=== PATIENT | female | born 1935 | race Caucasian/White ===

== ENCOUNTER → 2018-09-11 09:33 | Outpatient (CLI) | payer MEDICARE, BC | END | disposition home or self-care (01) | LOC: D.HCCARDIO 09:33 | DX: I25.10 Atherosclerotic heart disease of native coronary artery without angina pectoris (principal); R42 Dizziness and giddiness ==

== ENCOUNTER → 2019-03-14 09:09 | Outpatient (CLI) | payer MEDICARE, BC | END | disposition home or self-care (01) | LOC: D.HCCARDIO 09:09 | PROVIDERS: ATTEND Internal Medicine Cardiovascular Disease | DX: R06.02 Shortness of breath (principal); I25.10 Atherosclerotic heart disease of native coronary artery without angina pectoris ==

== ENCOUNTER 2019-11-14 11:39 | Inpatient (IN) | payer MEDICARE, BC ==
[2019-11-14] VITALS (12 sets, daily range): BP systolic 99–161; BP diastolic 48–85; Ht 157.5 cm; Wt 56.8 kg
[~2019-11-14] VITALS: Ht 157.5 cm; Wt 56.8 kg
--- NOTE | ~2019-11-14 | HEMODYNAMI ---
PATIENT:ROSENDA SILVA MEDICAL RECORD: [id number] : 35 LOCATION:[facility]# [id number] ADMISSION DATE: 11/14/19 Generatedon:11/14/201913:21 Patient name: ROSENDA SILVA Patient #: [id number] SSN: [id number] : 1935 Date of study: 11/14/2019 Page: Of Hemodynamic Procedure Report Patient Data Patient Demographics Procedure consent was obtained First Name: ROSENDA Gender: Female Last Name: RICARDO : 1935 Patient #: [id number] Age: 84 year(s) Race: SSN: [id number] Additional ID: [id number] Contact details [address]: [address] [place] [address] [address] State: [place] City: [place] Zip code: [address] Past Medical History Allergies: No known allergies Admission Admission Data Admission Date: 11/14/2019 Admission Time: 11:39 Arrival Date: 11/14/2019 Arrival Time: 0:00 Admit Source: Emergency Insurance Payor: Medicare department [facility] #: [id number] Height (in.): 62 BSA: 1.58 (m2) Height (cm.): 157.48 BMI: 23.41 (kg/m2) Weight (lbs.): 128 Weight (kg.): 58.06 Lab Results Lab Result Date: 11/14/2019 Lab Result Time: 0:00 CBC Name Units Result Min Max Hematocrit % 42.5 --(*---)-- 42 54 Hemoglobin g/dl 13.6 --(*---)-- 13.5 17.5 Procedure Procedure Types Cath Procedure Diagnostic Procedure [facility] w/Coronaries Sedation Charges Moderate Sedation up to 45 minutes PCI Procedure Coronary Stent Coronary Stent Initial Hemochron ACT Test Procedure Description Procedure Date Procedure Date: 11/14/2019 Procedure Start Time: 12:30 Procedure End Time: 13:13 Procedure Staff Name Function John Berger MD Performing Physician Emily Foy RN Nurse Kelly Garcia RT Process Operator Lis Hodges RT Monitor Sharonda Zuleima RT Scrub Procedure Data Cath Procedure Fluoroscopy Diagnostic fluoroscopy Total fluoroscopy Time: 8.8 time: 8.8 min min Diagnostic fluoroscopy Total fluoroscopy dose: 790 dose: 790 mGy mGy Contrast Material Contrast Material Type Amount (ml) Isovue 370 137 Entry Location Entry Primary Successful Side Size Upsize Upsize Entry Closure [place] ccessful Closure Location (Fr) 1 (Fr) 2 (Fr) Remarks Device Remarks Femoral Right 6 Fr Exoseal artery Short Femoral Right 6 Fr Manual vein Short Compression Estimated blood loss: 10 ml Diagnostic catheters Device Type Used For End Catheter Placement MULTIPACK JL 4.0 5Fr Procedure catheter MULTIPACK 3DRC 5Fr Procedure catheter MULTIPACK Pigtail 5 Fr Procedure catheter Procedure Complications No complications Procedure Medications Medication Administration Route Dosage 0.9% NaCl I.V. 100 ml/hr Oxygen etCO2 Nasal cannula 2 l/min Lidocaine 2% added to field 20 Heparin Flush Bag added to field 2 bags (1000units/500ml NS) Benadryl I.V. 50 mg Versed I.V. 2 mg Fentanyl I.V. 50 mcg Fentanyl I.V. 50 mcg Heparin Bolus I.V. 6000 units Nitroglycerin IC/IA I.C. 50 mcg Versed I.V. 1 mg Plavix P.O. 600 mg Hemodynamics Rest BSA: 1.58 (m2) HGB: 13.6 (g/dl) O2 Consumption: Estimated: 141.46 (ml/min) O2 Co nsumption indexed: Estimated:89.53 (ml/min/m) Heart Rate: 71 (bpm) Pressure Samples Time Site Value (mmHg) Purpose Heart Use Rate(bpm) 13:05 LV 74/6,13 Snapshot 56 13:06 AO 99/44(69) Pullback 68 13:06 LV 99/3,14 Pullback 68 Gradients Valve Time Site 1 Site 2 Mean SEP/DFP Peak To Heart Use (mmHg) (sec/min) Peak Rate (mmHg) (bpm) Aortic 13:06 LV AO 7 16 0 68 99/3,14 99/44(69) Calculations Valve P-P Mean Valve Index Valve Source Name Gradient Area Flow (cm2) Aortic 0 7 0 7 Snapshots Pre Cath Intra NCS Post Cath Vital Signs Time Heart Resp SPO2 etCO2 NIBP (mmHg) Rhythm Pain Sedation Rate (ipm) (%) (mmHg) Status Level (bpm) 12:24:02 90 13 100 31.4 163/89(122) NSR w/ ST 0 (11) 10(A) Elevation , No pain 12:28:20 90 13 99 35.2 148/84(119) NSR w/ ST 0 (11) 10(A) Elevation , No pain 12:32:36 86 10 97 29.9 135/75(109) NSR w/ ST 0 (11) 10(A) Elevation , No pain 12:36:52 86 10 99 33.7 135/70(102) NSR w/ ST 0 (11) 9(A) Elevation , No pain 12:41:10 86 10 100 32.2 136/71(107) NSR w/ ST 0 (11) 9(A) Elevation , No pain 12:45:28 80 11 100 8.9 135/67(91) NSR w/ ST 0 (11) 9(A) Elevation , No pain 12:49:44 90 13 100 29.2 112/63(104) NSR 0 (11) 9(A) , No pain 12:53:58 74 13 100 30.7 93/53(88) NSR 0 (11) 9(A) , No pain 12:58:06 70 13 100 29.9 96/58(88) NSR 0 (11) 9(A) , No pain 13:02:20 62 13 100 19.4 74/46(63) NSR 0 (11) 10(A) , No pain 13:06:24 67 12 100 14.2 90/50(75) NSR 0 (11) 10(A) , No pain 13:10:29 67 13 100 24.7 106/60(91) NSR 0 (11) 10(A) , No pain 13:14:41 100 18.7 112/60(90) NSR 0 (11) 10(A) , No pain 13:18:55 100 29.2 108/59(84) NSR 0 (11) 10(A) , No pain Medications Time Medication Route Dose Verified Delivered Reason Notes Effectiveness by by 12:25:38 Versed I.V. 2 mg John Emily for sedation Ab Foy RN 12:25:42 0.9% NaCl I.V. 100 John Emily used for ml/hr Ab Foy protective signal operations supervisor 12:25:48 Oxygen etCO2 2 John Emily used for Nasal l/min Ab Foy procedure cannula RN 12:25:49 Fentanyl I.V. 50 John Emily for sedation mcg Ab Foy RN 12:25:53 Lidocaine 2% added 20ml John John for local to vial Ab Berger MD anesthetic field 12:25:57 Heparin Flush added 2 John John used for Bag to bags Ab Berger MD procedure (1000units/500ml field NS) 12:26:06 Benadryl I.V. 50 mg John Emily used for Ab Foy protective signal operations supervisor 12:30:50 Versed I.V. 1 mg John John for sedation Ab Berger MD 12:30:58 Fentanyl I.V. 50 John Emily for sedation mcg Ab Foy RN 12:43:15 Heparin Bolus I.V. 6000 John Emily for verif ied units Ab Foy anticoagulation with Dr. LORENA Berger 13:00:04 Nitroglycerin I.C. 50 John John for IC/IA mcg Ab Berger MD vasodilation 13:11:41 Plavix P.O. 600 John John for mg Ab Berger MD antiplatelet therapy Procedure Log Time Note 12:08:14 Informed consent obtained and on chart 12:08:46 Procedure Status Emergent Heart Cath (AMI). 12:08:47 Time tracking: Regular hours (M-F 7:00 - 5:00) 12:08:52 Plan of Care:Hemodynamics will remain stable., Cardiac rhythm will remain stable., Comfort level will be maintained., Respiratory function will remain adequate., Patient/ family verbilizes understanding of procedure., Procedure tolerated without complication., Recovers from procedure without complications.. 12:08:54 Emily Foy RN sent for patient. Start room use. 12:08:56 H&P Date Dictated: 11/14/2019 ER History on chart.. 12:10:10 Family unavailable. 12:12:23 Stress Test: no; N/A ? 12:12:42 Admit Source: Emergency department 12:14:33 Arrival Date: 11/14/2019 12:00:00 AM 12:14:46 Patient Height : 62 inches 12:14:54 Patient Weight : 128 lbs 12:15:15 Insurance Payor : Medicare 12:16:55 Patient received from ED to CCL 1 Alert and oriented. Tansferred to table in Supine position. 12:16:57 Warm blankets applied, and ester hugger turned on for patient comfort. 12:16:57 Correct patient and procedure confirmed by team. 12:16:59 ECG and BP/O2 sat monitors applied to patient. 12:17:03 Pre-procedure instructions explained to patient. 12:17:03 Pre-op teaching completed and patient verbalized understanding. 12:17:08 Patient NPO since Breakfast. 12:17:23 Patient allergic to No known allergies 12:19:56 Is the patient allergic to Iodine/contrast media? No. 12:19:57 Was the patient premedicated? N/A 12:19:59 Is patient on blood thinner?No 12:20:04 Patient diabetic? No. 12:20:07 If diabetic: On Metformin? N/A 12:20:12 Patient not . Patient is over age 55. 12:20:15 ----Pre-sedation anethsthesia assessment.---- 12:20:18 Previous problem with sedation/anesthesia? No ? 12:20:19 Snore? Yes 12:20:20 Sleep apnea? Yes 12:20:21 Deviated septum? No 12:20:22 Opens mouth fully? Yes 12:20:23 Sticks out tongue? Yes 12:20:25 Airway obstruction? No ? 12:20:27 Dentures? No ? 12:20:30 Pre procedure: right dorsailis pedis pulse 1+ Palpable, but thready & weak; easily obliterated 12:20:34 Patient pain scale 0/10 ?. 12:20:38 IV patent on arrival in right hand with 0.9% NaCl at [facility]. 12:20:48 Lab results pending. 12:20:53 Right groin area was prepped with chlora-prep and draped in sterile fashion 12:20:53 Alarms reviewed by R. N. 12:20:54 Sharps counted by scrub and verified by R.N. 12:20:57 Use device set Femoral Dx 12:20:58 ACIST Syringe (72079) opened to sterile field. 12:20:59 Bag Decanter (2002S) opened to sterile field. 12:21:00 Medline Cath Pack ([id number]) opened to sterile field. 12:21:01 ACIST Hand Control (17023) opened to sterile field. 12:21:01 ACIST Manifold (83241) opened to sterile field. 12:21:02 DIAGNOSTIC Multipack 5Fr catheter set (SP9121) opened to sterile field. 12:21:03 SHEATH 5FR [place] (JHY742) opened to sterile field. 12:21:04 EMERALD Guide Wire (502-678) opened to sterile field. 12::50 Full Disclosure recording started 12::53 Vital chart was started 12:23:14 Baseline sample Acquired. 12::06 Rhythm: sinus rhythm , w/ ST elevation 12::44 --------ALL STOP TIME OUT------ 12::45 Final Timeout: patient, procedure, and site verified with staff and physician. All members of the team are in agreement. 12:24:46 Right groin site verified by team. 12::50 Fire Safety Assessment: A--An alcohol-based skin anteseptic being used preoperatively., C--Open oxygen or nitrous oxide is being used., D--An ESU, laser, or fiber-optic light is being used. 12::53 Physical assessment completed. ASA score P 2 - A patient with mild systemic disease as per John Berger MD. ::59 Sedation plan: IV Moderate Sedation Medication:Versed, Fentanyl 12:25:38 Versed 2 mg I.V. was administered by Emily Foy RN; for sedation; Verbal order read back and verified. 12:25:42 0.9% NaCl 100 ml/hr I.V. was administered by Emily Foy RN; used for procedure; Verbal order read back and verified. 12:25:48 Oxygen 2 l/min etCO2 Nasal cannula was administered by Emily Foy RN; used for procedure; Verbal order read back and verified. 12:25:49 Fentanyl 50 mcg I.V. was administered by Emily Foy RN; for sedation; Verbal order read back and verified. 12::53 Lidocaine 2% 20ml vial added to field was administered by John Berger MD; for local anesthetic; Verbal order read back and verified. 12:25:57 Heparin Flush Bag (1000units/500ml NS) 2 bags added to field was administered by John Berger MD; used for procedure; Verbal order read back and verified. 12:26:06 Benadryl 50 mg I.V. was administered by Emily Foy RN; used for procedure; Verbal order read back and verified. :: Lab Result : Hemoglobin 13.6 g/dl 12:: Lab Result : Hematocrit 42.5 % 12:30:00 Procedure started. 12:30:11 IV Extension Set opened to sterile field. 12:30:50 Versed 1 mg I.V. was administered by John Berger MD; for sedation; Verbal order read back and verified. 12:30:56 Local anesthetic to right femoral artery with Lidocaine 2% by Jhon Berger MD.INITIAL ACCESS ONLY 12:30:58 Fentanyl 50 mcg I.V. was administered by Emily Foy RN; for sedation; Verbal order read back and verified. 12:32:24 A 6 Fr Short sheath was inserted into the Right Femoral artery 12:32:46 A MULTIPACK JL 4.0 5Fr catheter was advanced over the wire and used for Procedure. 12:33:58 LCA angiography performed. 12:34:01 Injector settings: Ml/sec: 3, Volume: 6, 12:36:00 Catheter exchanged over wire. 12:36:34 A MULTIPACK 3DRC 5Fr catheter was advanced over the wire and used for Procedure. 12:37:05 RCA angiography performed. 12:37:09 Injector settings: Ml/sec: 3, Volume: 6, 12:37:48 Catheter exchanged over wire. 12:39:38 Proceeding to intervention. 12:39:52 Use device set BERGER PCI 12:40:00 GUIDE 6FR XBLAD 3.5 catheter ([id number]) opened to sterile field. 12:40:21 INFLATOR Merit BasixCompak (LD8048) opened to sterile field. 12:40:27 TUBING High Pressure Extension Tubing (Berger) ([id number]) opened to sterile field. 12:41:24 A 6 Fr Short sheath was inserted into the Right Femoral vein 12:43:02 6 Fr XBLAD 3.5 guide catheter was inserted over the wire 12:43:15 Heparin Bolus 6000 units I.V. was administered by Emily Foy RN; for anticoagulation; verified with Dr. Berger Verbal order read back and verified. 12:44:59 BMW 300cm [place] 2 J wire ([id number]) opened to sterile field. 12:45:07 BMW 300 wire advanced. 12:45:09 Wire advanced across lesion. 12:45:39 Pre PCI Site: [place] Circ has 100% stenosis. 12:47:25 5Fr J Tip Temporary Pacing Catheter ([id number]) opened to sterile field. 12:47:27 --------Temp Pacer------- 12:47:55 Temporary pacer inserted 12:50:18 Temporary pacer turned on with the following settings: Rate 70, MA 3, Mode: Demand. 12:51:21 Inflate balloon Inflation number: 1 A EMERGE OTW 2.5 x 15 balloon ([id number]) was prepped and advanced across the Mid CX , then inflated to 8 TRACY for 0:00 (min:sec) . 12:53:06 Balloon removed over the wire. 12:57:14 Place stent Inflation Number: 2 A THALIA OTW 3.0 x 18 stent ([id number]) was prepped and advanced across the Mid CX . The stent was deployed at 10 TRACY for 0:00 (min:sec) . 13:00:04 Nitroglycerin IC/IA 50 mcg I.C. was administered by John Berger MD; for vasodilation; Verbal order read back and verified. 13:00:13 Stent catheter was removed intact over wire. 13:01:14 TEMP PACER RATE ADJUSTED TO A RATE OF 60. AND ma STILL 3.. 13:03:08 Wire removed. 13:04:12 Catheter exchanged over wire. 13:04:19 A MULTIPACK Pigtail 5 Fr catheter was advanced over the wire and used for Procedure. 13:04:52 LV gram done using NESS 13:06:04 LV hemodynamics recorded. 13:06:07 Injector settings: Ml/sec: 5, Volume: 15, 13:06:25 EF : 45 % 13:07:06 Catheter removed. 13:07:19 EXOSEAL 6Fr (EX600) opened to sterile field. 13:08:19 Temporary pacer turn off 13:08:20 Temporary pacer removed 13:08:30 Sheath removed intact; hemostasis achieved with Manual Compression to the Right Femoral vein. 13:08:34 Sheath removed intact; hemostasis achieved with Exoseal to the Right Femoral artery. 13:08:49 Procedure ended.(Physican Out) 13:09:39 Fluoroscopy time 08.80 minutes. 13:09:42 Fluoroscopy dose: 790 mGy 13:09:42 Flurop Dose total: 790 13:09:50 Dose Area Product 11498 mGy/cm. 13:09:55 Contrast amount:Isovue 370 137ml. 13:09:58 Maximum allowable dose exceeded? No. 13::58 Sharps counted by scrub and verified by R.N. 13:10:45 ACT drawn and resulted at >400- out of range seconds. (normal therapeutic range 180-240 seconds). 13:11:12 Post-op/insertion site Right Femoral artery dressed using a 4 x 4 and Tegaderm. 13:11:18 Post-op/insertion site Right Femoral vein dressed using a 4 x 4 and Tegaderm. 13:11:21 Post Procedure Pulses reassessed and unchanged 13:11:24 Post procedure: right dorsailis pedis pulse 1+ Palpable, but thready & weak; easily obliterated. 13:11:27 Post-procedure physical assessment completed. ASA score P 2 - A patient with mild systemic disease as per John Berger MD. 13:11:33 Post procedure rhythm: sinus rhythm 13:11:37 Estimated blood loss: 10 ml 13:11:38 Post procedure instruction explained to patient.Patient verbalizes understanding. 13:11:39 Patient needs reinforcement of post procedure teaching. 13:11:41 Plavix 600 mg P.O. was administered by John Berger MD; for antiplatelet therapy; Verbal order read back and verified. 13:12:44 Procedure type changed to Cath procedure, Diagnostic procedure, LHC, [facility] w/Coronaries, Sedation Charges, Moderate Sedation up to 45 minutes, PCI procedure, Coronary Stent, Coronary Stent Initial, Hemochron ACT Test 13:13:28 Procedure and supply charges have been captured, reviewed, submitted and are correct. 13:13:32 Procedure Complication : No complications 13:13:[address] [facility] Findings: MVD- PCI performed (see procedure note) 13:13:38 Operative report dictated upon procedure completion. 13:13:39 See physician's report for complete and final results. 13:13:43 Report given to ICU. 13:13:47 Patient transfered to ICU with Bed. 13:13:50 Procedure ended. 13:13:50 Full Disclosure recording stopped 13:14:52 ACC-PCI Only Patient was given prescriptions, or instructed by John Berger MD to start/continue the following medications upon discharge: Plavix 13:19:54 Vital chart was stopped 13:19:55 End room use (Document Last) 13:20:54 End room use (Document Last) 13:21:16 End room use (Document Last) Intervention Summary Intervention Notes Time ActionType Lesion and Equipment Action# Pressure Duration Attributes Used 12:51:21 Inflate Mid CX EMERGE OTW 1 8 00:00 balloon 2.5 x 15 balloon ([id number]) 12:57:14 Place stent Mid CX THALIA OTW 3.0 2 10 00:00 x 18 stent ([id number]) Device Usage Item Name Manufacture Quantity Catalog Number Hospital Part Current M inimal Lot# / Charge Number Stock Stock Serial# Code ACIST Syringe Acist 1 18149 243472 698246 640296 2 0 (68085) Medical Systems Inc Bag Decanter Microtek 1 2001S 800051 09393 853301 5 (2001S) Medical Inc. Medline Cath Medline 1 [id number] 122929 70039 106335 5 Pack ([id number]) ACIST Hand Acist 1 16193 189989 027920 196782 5 Control Medical (72595) Systems Inc ACIST Acist 1 69863 999766 660150 864150 5 Manifold Medical (83235) Systems Inc DIAGNOSTIC Cardinal 1 EL7588 310896 33457 217443 3 0 Multipack 5Fr Health catheter set (RW0911) SHEATH 5FR Terumo 1 VZE432 545292 901920 892862 5 [place] (NML355) EMERALD Guide Cardinal 1 502-371 144232 325032 878774 5 Wire Health (759-230) IV Extension Hospira 1 94064-14 511523 83447 167974 5 Set MULTIPACK JL Cardinal 1 666971 5 4.0 5Fr Health catheter MULTIPACK Cardinal 1 146247 5 3DRC 5Fr Health catheter GUIDE 6FR Cardinal 1 97921281 081270 091590 228465 1 0 XBLAD 3.5 Health catheter (65622401) INFLATOR Merit 1 UA0999 466407 066616 310091 1 5 Merit Medical BasixCompak (IO2058) TUBING High Merit 1 MD9130L 451361 00294 567649 1 0 Pressure Medical Extension Tubing (Berger) (QB6150H) BMW 300cm Hoff 1 [id number] 949240 119737 127515 5 [place] 2 J Vascular wire (5814398S) EMERGE OTW [place] 1 [id number] 395778 337756 230044 5 [id number] 2.5 x 15 Scientific balloon ([id number]) 5Fr J Tip Espinal 1 U65558Q1 691346 99586 206591 2 Temporary Lifesciences Pacing Catheter (Z53888P8) THALIA OTW 3.0 Medtronic 1 [id number] 729853 9426658 791275 5 [id number] x 18 stent ([id number]) MULTIPACK Cardinal 1 407950 5 Pigtail 5 Fr Health catheter EXOSEAL 6Fr Cardinal 1 EX600 365632 789233 988383 1 0 (EX600) Health Signature Audit [place] Stage Time Signature Unsigned Intra-Procedure 11/14/2019 Lis Hodges 1:20:54 PM RT(R) Intra-Procedure 11/14/2019 Emily Foy 1:21:16 PM RN Intra-Procedure 11/14/2019 John Berger MD 1:21:39 PM [place] [id number] [facility] [place] [address]
--- NOTE | 2019-11-14 12:00 | NUR ---
DR STAPLETON AT BS. INSTR DO NOT GIVE HEPARIN OR PLAVIX. CATH LAGB COMING NOW
--- NOTE | 2019-11-14 12:12 | NUR ---
CUT OFF SAW TENDER METAL CREW HERE. TRANSPORTED TO CUT OFF SAW TENDER METAL, CONDITION STABLE.
[2019-11-14 12:17] LABS: HEMATOCRIT 42.5 % (36.0-48.0); HEMOGLOBIN 13.6 g/dL (12-16); MCH 29.3 pg (26.0-34.0); MCV 91.6 fL (80.0-100.0); MEAN PLATELET VOLUME 12.3 fL (7.4-10.4); NEUTROPHILS 80.4 % (40-80); PLATELET COUNT 177 10x3/uL (130-400); RBC 4.64 10x6/uL (4.00-5.40); RDW 14.2 % (11.5-14.5); WBC 6.4 10x3/uL (4.8-10.8)
[2019-11-14 12:52] LABS: CALC OSMOLALITY 278 mosm/kg (275-300); CALCIUM 8.9 mg/dL (8.5-10.1); CARBON DIOXIDE 25.1 mmol/L (21.0-32.0); CHLORIDE - SERUM 100 mmol/L (98-107); CREATININE - SERUM 0.5 mg/dL (0.6-1.3); GLUCOSE 148 mg/dL (74-106); POTASSIUM - SERUM 3.4 mmol/L (3.5-5.1); SODIUM 137 mmol/L (136-145); UREA NITROGEN 19 mg/dL (7-18); eGFR NON AFRICAN AMERICAN > 90 mL/min (90-120)
[2019-11-14 13:10] LABS: INR 1.02 (0.85-1.17); PROTIME 12.7 SECONDS (11.6-15.0)
[2019-11-14 13:13] LABS: APTT 25.9 SECONDS (22.8-39.4)
[2019-11-14 13:13] LABS: ALBUMIN 4.1 g/dL (3.4-5.0); ALKALINE PHOSPHATASE 76 U/L (30-120); ALT (SGPT) 23 U/L (10-68); BILIRUBIN - TOTAL 1.07 mg/dL (0.2-1.3); CKMB 5.9 U/L (0.0-3.6); CREATINE KINASE 68 UL (21-215); MAGNESIUM - SERUM 1.8 mg/dL (1.8-2.4); PROTEIN - SERUM 7.1 g/dL (6.4-8.2)
[2019-11-14 13:33] LABS: CHOL - HDL RATIO 2.4 ratio (2.3-4.1); LDL-HDL RATIO 1.3 ratio (1.5-3.5)
[2019-11-14] MEDS ORDERED: CARDIZEM120 MG PO (14:00)
[2019-11-14] MEDS ORDERED: PEPCID AC20 MG PO (14:01)
[2019-11-14] MEDS ORDERED: LOPRESSOR25 MG PO (14:01)
[2019-11-14] MEDS ORDERED: LYRICA50 MG PO (14:02)
--- NOTE | 2019-11-14 19:00 | NUR ---
BEDSIDE REPORT AND SHIFT ASSESSMENT COMPLETE, SEE FLOWSHEET. VSS. R GROIN CATH SITE WNL, DRESSING CDI, SITE SOFT. PT AMBULATED TO BEDSIDE COMMODE AND BACK TO BED WITH MIN ASSISTANCE. DENIES ANY NEEDS AT THIS TIME. CALL LIGHT IN REACH, WILL CONTINUE TO MONITOR.
--- NOTE | 2019-11-14 20:20 | NUR ---
AT BEDSIDE, UPDATE GIVEN.
--- NOTE | 2019-11-14 21:00 | NUR ---
C/O INDIGESTION. STATES SHE TAKES PEPCID AT NIGHT. WILL CHECK HOME MEDS.
--- NOTE | 2019-11-14 21:47 | NUR ---
SPOKE WITH DR STAPLETON ABOUT THE RUNS OF PVC'S. NO NEW ORDERS WITH THE PVC'S. PT C/O HEARTBURN AND SHE STATES SHE TAKES PEPCID AT NIGHT AND PRILOSEC IN THE AM. N.O FOR PEPCID AND PROTONIX. SEE ORDERS AND MAR.
--- NOTE | 2019-11-14 21:50 | NUR ---
SPOKE WITH DR STAPLETON, UPDATE GIVEN. NEW ORDERS RECEIVED.
--- NOTE | 2019-11-14 22:30 | NUR ---
PT AMBULATED TO BEDSIDE COMMODE AND BACK TO BED WITH STAND BY ASSIST. DENIES ANY OTHER NEEDS. CALL LIGHT IN REACH.
--- NOTE | 2019-11-14 23:00 | NUR ---
REASSESSMENT COMPLETE, SEE FLOWSHEET.
[2019-11-15] VITALS (9 sets, daily range): BP systolic 95–110; BP diastolic 48–57
--- NOTE | 2019-11-15 03:00 | NUR ---
REASSESSMENT COMPLETE, SEE FLOWSHEET.
--- NOTE | 2019-11-15 08:05 | NUR ---
LYING IN BED AWAKE AT THIS TIME. VSS. NO ACUTE DISTRESS NOTED. CALL LIGHT IN REACH. RT GROIN SITE CDI WITH NO S/S HEMATOMA. WILL CONTINUE PLAN OF CARE.
--- NOTE | 2019-11-15 09:14 | NUR ---
DR STAPLETON AT BEDSIDE SPEAKING WITH PT.
--- NOTE | 2019-11-15 09:44 | NUR ---
PER DR STAPLETON, OKAY FOR PT TO HAVE CARDIAC DIET, OBTAIN EKG, WILL POSSIBLY DISCHARGE PT HOME LATER TODAY. ALSO ASSITED PT TO TOILET VIA STAND BY ASSIST. PT PROVIDED OWN [place] CARE. VSS. WILL CONTINUE PLAN OF CARE.
--- NOTE | 2019-11-15 11:59 | NUR ---
PER DR STAPLETON, OKAY FOR PT TO TRANSFER HOME AFTER HIS MANAGER POST COMES TO SPEAK WITH PT AND DOES DISCHARGE NOTES. VSS. NO ACUTE DISTRESS NOTED.
[2019-11-15] MEDS ORDERED: COREG 3.1253.125 MG PO (13:15)
[2019-11-15] MEDS ORDERED: PLAVIX75 MG PO (13:21)
--- NOTE | 2019-11-15 13:51 | NUR ---
CONRAD HAS SPOKEN WITH PT. PT HAS RECIEVED DISCHARGE PAPERWORK, AND UNDERSTANDS MED CHANGES AND STATES SHE IS ABLE TO OBTAIN PRESCRIPTIONS. ALSO STATES SHE UNDERSTANDS DISCHARGE TEACHINGS. PIC TO RT HAND DCD. RT GROIN CDI, NO S/S HEMATOMA. PULSES PALPABLE. WILL DISCHARGE PT HOME SHORTLY.
--- NOTE | 2019-11-15 14:10 | NUR ---
PT DISCHARGED HOME AT THIS TIME WITH ALL PERSONAL ITEMS, DISCHARGE PAPERWORK, DISCHARGE TEACHINGS, AND ALL PERSONAL ITEMS. LEFT VIA PERSONAL VEHICLE WITH FAMILY MEMBER VIA WHEELCHAIR WITH STAFF ASSIST. NO ACUTE DISTRESS NOTED. NO FURTHER ACTIONS.
--- NOTE | 2019-11-15 19:28 | MORECARE ---
CASE MANAGEMENT DISCHARGE SUMMARY PATIENT: ROSENDA SILVA UNIT: [id number] ADM DATE: 11/14/19 AGE: 84 : 35 SEX: F ROOM/BED: D.2302 AUTHOR: KOURTNEY WARREN PHYSICIAN: REFERRING PHYSICIAN: JAYCEE STAPLETON M.D. DATE OF SERVICE: 11/15/19 Discharge Plan Patient Name: ROSENDA SILVA [facility] [facility] 1935 Planned Disposition: Anticipated Discharge Date: Discharge Date: 11/15/2019 Expected LOS: Initial Reviewer: [email or web address] Initial Review Date: 11/14/2019 Generated: 11/15/19 8:28 pm Patient Name: ROSENDA SILVA Page [id number] at 8 All edits/amendments must be made on the electronic document DICTATION DATE: 11/15/191927 CORPORATE AUDITOR: STACIE 11/15/191927 RPT#: [id number] DC DATE:11/15/19 STATUS: DIS IN [facility] [address] [place] [address] END OF REPORT
--- NOTE | 2019-11-15 19:35 | MORECARE ---
CASE MANAGEMENT DISCHARGE SUMMARY PATIENT: ROSENDA SILVA UNIT: [id number] ADM DATE: 11/14/19 AGE: 84 : 35 SEX: F ROOM/BED: D.2302 AUTHOR: KELVIN,DOC PHYSICIAN: REFERRING PHYSICIAN: JAYCEE STAPLETON M.D. DATE OF SERVICE: 11/15/19 Discharge Plan Patient Name: ROSENDA SILVA Facility: [facility]:[place] : 1935 Planned Disposition: Anticipated Discharge Date: Discharge Date: 11/15/2019 Expected LOS: Initial Reviewer: [email or web address] Initial Review Date: 11/14/2019 Generated: 11/15/19 8:35 pm Comments DCP- Discharge Planning Updated by [email or web address]: Jayla Chandler on 11/15/19 6:[address] Patient Name: ROSENDA SILVA Admission Status: Elective Accout number: [id number] Admission Date: 11-14-2019 : 1935 Admission Diagnosis: Attending: JAYCEE STAPLETON Current LOS: 1 Anticipated DC Date: Planned Disposition: Primary Insurance: MEDICARE A & B Discharge Planning Comments: CM met with patient to complete initial dc planning assessment. CM educated patient on the CM role and verbal consent given by patient to complete assessment. Patient lives at home with . At discharge patient plans to return home and feels this is a safe discharge. CM discussed availability of home health, rehab services, and medical equipment. Patient denied known discharge needs at this time. CM will continue to follow and will assist as needed with dc plans/needs. Traffic Operations Engineer: Jayla Chandler DCPIA - Discharge Planning Initial Assessment Updated by [id number]: Jayla Chandler on 11/15/19 7:30 pm * Is the patient Alert and Oriented? Yes * How many steps to enter\exit or inside your home? * PCP MIA * Pharmacy [facility] * Preadmission Environment Home with Family * ADLs Independent * List name and contact numbers for known caregivers / representatives who currently or will assist patient after discharge: CHELSEA SILVA - [facility] - [phone] * Verbal permission to speak to the caregivers and representatives has been obtained from the patient. Yes * Community resources currently utilized None * Additional services required to return to the preadmission environment? No * Can the patient safely return to the preadmission environment? Yes * Has this patient been hospitalized within the prior 30 days at any hospital? No Last DP export: 11/15/19 6:28 p Patient Name: ROSENDA SILVA Page [id number] at 193 All edits/amendments must be made on the electronic document DICTATION DATE: 11/15/191934 SHAKE SPLITTER: STACIE 11/15/191934 RPT#: [id number] DC DATE:11/15/19 STATUS: DIS IN [facility] [address] [place] [address] END OF REPORT
== END 2019-11-15 14:10 | disposition home or self-care (01) | DRG 247 ==
LOC: D.ER 11:39 → D.ICU 13:46
PROVIDERS: Emergency Medicine; ADMIT Internal Medicine Cardiovascular Disease; ATTEND Internal Medicine Cardiovascular Disease
PROC: B2111ZZ Fluoroscopy of Multiple Coronary Arteries using Low Osmolar Contrast (ICD-10-PCS; 2019-11-14)
PROC: B2151ZZ Fluoroscopy of Left Heart using Low Osmolar Contrast (ICD-10-PCS; 2019-11-14)
PROC: 5A1223Z Performance of Cardiac Pacing, Continuous (ICD-10-PCS; 2019-11-14)
PROC: 027034Z Dilation of Coronary Artery, One Artery with Drug-eluting Intraluminal Device, Percutaneous Approach (ICD-10-PCS; principal; 2019-11-14 12:00)
PROC: 4A023N7 Measurement of Cardiac Sampling and Pressure, Left Heart, Percutaneous Approach (ICD-10-PCS; 2019-11-14 12:00)
DX: I21.19 ST elevation (STEMI) myocardial infarction involving other coronary artery of inferior wall (principal); I25.10 Atherosclerotic heart disease of native coronary artery without angina pectoris; I10 Essential (primary) hypertension

== ENCOUNTER 2019-11-23 07:58 | Outpatient (CLI) | payer MEDICARE, BC ==
[~2019-11-23] VITALS: Ht 157.5 cm; Wt 58.2 kg
--- NOTE | ~2019-11-23 | HEMODYNAMI ---
PATIENT:ROSENDA SILVA MEDICAL RECORD: [id number] : 35 [id number] ADMISSION DATE: 11/23/19 Generatedon:11/23/20199:40 Patient name: ROSENDA SILVA Patient #: [id number] SSN: [id number] : 1935 Date of study: 11/23/2019 Page: Of Hemodynamic Procedure Report Patient Data Patient Demographics Procedure consent was obtained First Name: ROSENDA Gender: Female Last Name: RICARDO : 1935 Patient #: [id number] Age: 84 year(s) Race: SSN: [id number] Additional ID: [id number] Contact details [address]: [address] [place] [address] State: [place] City: [place] Zip code: [address] Past Medical History History of disease Date Diagnosis Comments CAD Allergies Allergen Reaction Date Comments Reported Other allergy 11/23/2019 NIACIN Admission Admission Data Admission Date: 11/23/2019 Admission Time: 7:58 Arrival Date: 11/23/2019 Arrival Time: 0:00 Height (in.): 61.81 BSA: 1.58 (m2) Height (cm.): 157 BMI: 23.53 (kg/m2) Weight (lbs.): 127.87 Weight (kg.): 58 Procedure Procedure Types Cath Procedure Diagnostic Procedure Sedation Charges Moderate Sedation up to 15 minutes PCI Procedure Coronary Stent Coronary Stent Initial Hemochron ACT Test Procedure Description Procedure Date Procedure Date: 11/23/2019 Procedure Start Time: 9:20 Procedure End Time: 9:38 Procedure Staff Name Function Emily Foy RN Nurse Palak Wolf RT Scrub Sharonda Dewey RT Smoke And Flame Specialist Kelly Garcia RT Monitor John Berger MD Performing Physician Procedure Data Cath Procedure Fluoroscopy Diagnostic fluoroscopy Total fluoroscopy Time: 2.8 time: 2.8 min min Diagnostic fluoroscopy Total fluoroscopy dose: 142 dose: 142 mGy mGy Contrast Material Contrast Material Type Amount (ml) Isovue 300 44 Entry Location Entry Primary Successful Side Size Upsize Upsize Entry Closure Succes sful Closure Location (Fr) 1 (Fr) 2 (Fr) Remarks Device Remarks Femoral Right 6 Fr Exoseal artery Short Estimated blood loss: 10 ml Procedure Complications No complications Procedure Medications Medication Administration Route Dosage 0.9% NaCl I.V. 100 ml/hr Oxygen etCO2 Nasal cannula 2 l/min Lidocaine 2% added to field 20 Heparin Flush Bag added to field 2 bags (1000units/500ml NS) Versed I.V. 2 mg Fentanyl I.V. 50 mcg Fentanyl I.V. 50 mcg Heparin Bolus I.V. 6000 units Hemodynamics Rest BSA: 1.58 (m2) O2 Consumption: Estimated: 139.8 (ml/min) O2 Consumption indexed: Estimated:88.48 (ml/min/m) Heart Rate: 68 (bpm) Snapshots Pre Cath Intra NCS Post Cath Vital Signs Time Heart Resp SPO2 etCO2 NIBP Rhythm Pain Sedation Rate (ipm) (%) (mmHg) (mmHg) Status Level (bpm) 9:02:39 69 21 100 17 138/66(95) NSR 0 (11) 10(A) , No pain 9:06:52 72 17 100 38.2 128/61(88) NSR 0 (11) 10(A) , No pain 9:11:10 66 12 100 18.7 117/58(81) NSR 0 (11) 10(A) , No pain 9:15:24 63 12 100 16.5 114/55(82) NSR 0 (11) 10(A) , No pain 9:19:36 71 12 100 27.7 106/59(80) NSR 0 (11) 9(A) , No pain 9:23:48 63 13 100 12 107/54(75) NSR 0 (11) 9(A) , No pain 9:28:00 59 12 100 25.5 109/54(85) NSR 0 (11) 9(A) , No pain 9:32:14 61 10 100 24 107/51(79) NSR 0 (11) 9(A) , No pain 9:36:26 61 10 100 9 104/49(79) NSR 0 (11) 10(A) , No pain Medications Time Medication Route Dose Verified Delivered Reason Notes Effectiveness by by 9:01:39 0.9% NaCl I.V. 100 John Diaz used for ml/hr Ab Foy transportation program director 9:01:45 Oxygen etCO2 2 John Emily used for Nasal l/min Ab Foy procedure cannula RN 9:01:50 Lidocaine 2% added 20ml John John for local to vial Ab Berger MD anesthetic field 9:01:54 Heparin Flush added 2 John John used for Bag to bags Ab Berger MD procedure (1000units/500ml field NS) 9:12:40 Versed I.V. 2 mg John John for sedation Ab Berger MD 9:12:50 Fentanyl I.V. 50 John John for sedation mcg Ab Berger MD 9:17:48 Fentanyl I.V. 50 John John for sedation mcg Ab Berger MD 9:25:41 Heparin Bolus I.V. 6000 John Emily for verifi ed units Ab Foy anticoagulation with Dr. LORENA Berger Procedure Log Time Note 8:42:59 Informed consent obtained and on chart 8:50:03 Procedure Status Elective Heart Cath (OP), PCI. 8:50:06 Time tracking: Regular hours (M-F 7:00 - 5:00) 8:50:08 Plan of Care:Hemodynamics will remain stable., Cardiac rhythm will remain stable., Comfort level will be maintained., Respiratory function will remain adequate., Patient/ family verbilizes understanding of procedure., Procedure tolerated without complication., Recovers from procedure without complications.. 8:50:10 Sharonda YEBOAH(R) (CV) sent for patient. Start room use. 8:50:20 H&P Date Dictated: 11/19/2019 Within 30 days and on chart., H&P Addendum completed by physician on day of procedure. (MUST COMPLETE FOR ALL OUTPATIENTS). 8:50:30 Patient allergic to Other allergyNIACIN 8:51:29 Patient Weight : 127.87 lbs 8:51:32 Patient Height : 61.81 inches 8:52:52 Arrival Date: 11/23/2019 12:00:00 AM 8:55:10 Patient received from Pre/Post Procedure Room to CCL 1 Alert and oriented. Tansferred to table in Supine position. 8:55:11 Warm blankets applied, and ester hugger turned on for patient comfort. 8:55:11 Correct patient and procedure confirmed by team. 8:55:12 ECG and BP/O2 sat monitors applied to patient. 8:56:19 Pre-procedure instructions explained to patient. 8:56:19 Pre-op teaching completed and patient verbalized understanding. 8:56:24 Family AVAILABLE BY PHONE CALL 9:01:32 Vital chart was started 9:01:39 0.9% NaCl 100 ml/hr I.V. was administered by Emily Foy RN; used for procedure; Verbal order read back and verified. 9:01:45 Oxygen 2 l/min etCO2 Nasal cannula was administered by Emily Foy RN; used for procedure; Verbal order read back and verified. 9:01:50 Lidocaine 2% 20ml vial added to field was administered by John Berger MD; for local anesthetic; Verbal order read back and verified. 9:01:54 Heparin Flush Bag (1000units/500ml NS) 2 bags added to field was administered by John Berger MD; used for procedure; Verbal order read back and verified. 9:03:18 Baseline sample Acquired. 9:03:22 Rhythm: sinus rhythm 9:03:23 Full Disclosure recording started 9:03:26 Is the patient allergic to Iodine/contrast media? No. 9:03:27 Is patient on blood thinner?Yes 9:03:29 ACC The patient was administered the following blood thiners within the last 24 hours: ACCPlavix 9:03:32 Patient diabetic? No. 9:03:34 Patient not . Patient is over age 55. 9:03:35 Previous problem with sedation/anesthesia? No ? 9:03:37 Snore? Yes 9:03:38 Sleep apnea? Yes 9:03:39 Deviated septum? No 9:03:41 Opens mouth fully? Yes 9:03:42 Sticks out tongue? Yes 9:03:43 Airway obstruction? No ? 9:03:46 Dentures? No ? 9:03:49 Pre procedure: right dorsailis pedis pulse 1+ Palpable, but thready & weak; easily obliterated 9:03:51 Patient pain scale 0/10 ?. 9:03:56 IV patent on arrival in left hand with 0.9% NaCl at [facility]. 9:04:01 Right groin area was prepped with chlora-prep and draped in sterile fashion 9:04:03 Alarms reviewed by R. N. 9:04:03 Sharps counted by scrub and verified by R.N. 9:04:06 Use device set CATH PACK 9:04:08 ACIST Syringe (83207) opened to sterile field. 9:04:08 ACIST Hand Control (69274) opened to sterile field. 9:04:08 ACIST Manifold (91955) opened to sterile field. 9:04:09 Medline Cath Pack ([id number]) opened to sterile field. 9:04:09 Bag Decanter (2002S) opened to sterile field. 9:04:10 EMERALD Guide Wire (502-376) opened to sterile field. 9:04:22 SHEATH 6FR [place] (HRO084) opened to sterile field. 9:04:22 BMW 300cm Straight [place] 2 wire ([id number]) opened to sterile field. 9:04:22 INFLATOR Merit BasixCompak (NZ9066) opened to sterile field. 9:04:23 TUBING High Pressure Extension Tubing (Ab) ([id number]) opened to sterile field. 9:11:36 GUIDE 6FR XBLAD 3.5 catheter ([id number]) opened to sterile field. 9:11:46 --------ALL STOP TIME OUT------ 9:11:47 Final Timeout: patient, procedure, and site verified with staff and physician. All members of the team are in agreement. 9:11:48 Right groin site verified by team. 9:11:51 Fire Safety Assessment: A--An alcohol-based skin anteseptic being used preoperatively., C--Open oxygen or nitrous oxide is being used., D--An ESU, laser, or fiber-optic light is being used. 9:11:54 Physical assessment completed. ASA score P 2 - A patient with mild systemic disease as per John Berger MD. 9:11:57 2) 60-89 Mildly reduced kidney function, and other findings (as for stage 1) point to kidney disease. 9:11:58 Maximum allowable contrast dose (3.7 X eGFR X 0.75)200 ml. 9:12:01 Sedation plan: IV Moderate Sedation Medication:Versed, Fentanyl 9:12:40 Versed 2 mg I.V. was administered by John Berger MD; for sedation; Verbal order read back and verified. 9:12:50 Fentanyl 50 mcg I.V. was administered by John Berger MD; for sedation; Verbal order read back and verified. 9:17:48 Fentanyl 50 mcg I.V. was administered by John Berger MD; for sedation; Verbal order read back and verified. 9:20:27 Procedure started. 9:20:32 Local anesthetic to right femoral artery with Lidocaine 2% by John Berger MD.INITIAL ACCESS ONLY 9:23:34 A 6 Fr Short sheath was inserted into the Right Femoral artery 9::41 6 Fr XBLAD 3.5 guide catheter was inserted over the wire 9::41 Heparin Bolus 6000 units I.V. was administered by Emily Foy RN; for anticoagulation; verified with Dr. Berger Verbal order read back and verified. 9:26:20 BMW 300 wire advanced. 9:28:21 Wire advanced across lesion. 9:30:38 Place stent Inflation Number: 1 A THALIA RX 3.0 x 18 stent ([id number]) was prepped and advanced across the Prox LAD . The stent was deployed at 12 TRACY for 0:00 (min:sec) . 9:30:57 Stent catheter was removed intact over wire. 9:30:59 Wire removed. 9:31:52 Guide catheter removed. 9:32:07 EXOSEAL 6Fr (EX600) opened to sterile field. 9:33:11 Sheath removed intact; hemostasis achieved with Exoseal to the Right Femoral artery. 9:33:13 Procedure ended.(Physican Out) :33:27 Fluoroscopy time 02.80 minutes. 9:33:31 Flurop Dose total: 142 9:33:31 Fluoroscopy dose: 142 mGy 9:33:35 Dose Area Product 6440 mGy/cm. 9:33:39 Contrast amount:Isovue 300 44ml. 9:33:44 Maximum allowable dose exceeded? No. 9:33:44 Sharps counted by scrub and verified by R.N. 9:33:47 Post-op/insertion site Right Femoral artery dressed using a 4 x 4 and Tegaderm. 9:33:50 Post-procedure physical assessment completed. ASA score P 2 - A patient with mild systemic disease as per John Berger MD. 9:33:59 Post procedure rhythm: sinus rhythm 9:34:01 Estimated blood loss: 10 ml 9:34:02 Post procedure instruction explained to patient.Patient verbalizes understanding. 9:34:02 Patient needs reinforcement of post procedure teaching. 9:34:33 Procedure type changed to Cath procedure, Diagnostic procedure, Sedation Charges, Moderate Sedation up to 15 minutes, PCI procedure, Coronary Stent, Coronary Stent Initial, Hemochron ACT Test 9:37:16 ACT drawn and resulted at OUT OF RANGE seconds. (normal therapeutic range 180-240 seconds). 9:38:27 Procedure and supply charges have been captured, reviewed, submitted and are correct. 9:38:30 Procedure Complication : No complications 9:38:32 Vital chart was stopped 9:38:33 [place] Findings: MVD- PCI performed (see procedure note) 9:38:35 Operative report dictated upon procedure completion. 9:38:35 See physician's report for complete and final results. 9:38:36 Report given to Pre/Post Procedure Room. 9:38:39 Patient transfered to Pre/Post Procedure Room with Bed. 9:38:41 Procedure ended. 9:38:41 Full Disclosure recording stopped 9:38:48 ACC-PCI Only Patient was given prescriptions, or instructed by John Berger MD to start/continue the following medications upon discharge: Plavix 9:38:49 End room use (Document Last) Intervention Summary Intervention Notes Time ActionType Lesion and Equipment Used Action# Pressure Duration Attributes 9:30:[address] stent Prox LAD THALIA RX 3.0 x 1 12 00:00 18 stent ([id number]) Device Usage Item Name Manufacture Quantity Catalog Hospital Part [facility] Lot# / Number Charge Number Stock Stock Serial# Code ACIST Syringe Acist 1 55635 287996 180837 055634 20 (75763) Medical Systems Inc ACIST Hand Acist 1 17723 749284 549636 057667 5 Control Medical (47779) [employer] ACIST Manifold Acist 1 84864 171480 186876 378071 5 (61133) Medical Systems Inc Medline Cath Medline 1 [id number] 997118 15518 692537 5 Pack ([id number]) Bag Decanter Microtek 1 820697 79805 019151 5 (2002S) Medical Inc. EMERALD Guide Cardinal 1 502-455 336783 270808 433074 5 Wire (502-455) Health SHEATH 6FR Terumo 1 [id number] 222770 661391 228966 40 [place] (LBW239) BMW 300cm Hoff 1 5079123 262547 333160 394001 5 Straight Vascular [place] 2 wire (2759613) INFLATOR Merit Merit 1 [id number] 927842 599535 484269 15 [employer] Medical (TK8686) TUBING High Merit 1 [id number] 549099 41128 537192 10 Pressure Medical Extension Tubing (Berger) ([id number]) GUIDE 6FR Cardinal 1 [id number] 367682 863569 460941 10 XBLAD 3.5 Health catheter ([id number]) THALIA RX 3.0 x Medtronic 1 [id number] 450784 7472320 206225 5 [id number] 18 stent ([id number]) EXOSEAL 6Fr Cardinal 1 EX600 115303 725254 303216 10 (EX600) Health Signature Audit Ethel Stage Time Signature Unsigned Intra-Procedure 11/23/2019 Kelly Garcia 9:39:50 AM RT(R) Intra-Procedure 11/23/2019 Emily Foy 9:40:05 AM RN Intra-Procedure 11/23/2019 John Berger MD 9:40:42 AM [facility] [address] [place] [address]
[~2019-11-23 07:58] MED LIST: CARDIZEM120 MG PO; COREG 3.1253.125 MG PO; LOPRESSOR25 MG PO; LYRICA50 MG PO; PEPCID AC20 MG PO; PLAVIX75 MG PO
[2019-11-23] MEDS ORDERED: PEPCID AC20 MG PO (08:22)
[2019-11-23 08:40] VITALS: BP 133/60; Ht 157.5 cm; Wt 58.2 kg
[2019-11-23 08:42] LABS: BASOPHILS 0.7 % (0-2); EOSINOPHILS 3.4 % (0-7); HEMATOCRIT 41.9 % (36.0-48.0); HEMOGLOBIN 13.2 g/dL (12-16); IMMATURE GRANULOCYTES 0.2 % (0-5); LYMPHOCYTES 15.1 % (15-50); MCH 29.5 pg (26.0-34.0); MCHC 31.5 g/dL (31.0-37.0); MCV 93.7 fL (80.0-100.0); MEAN PLATELET VOLUME 11.6 fL (7.4-10.4); MONOCYTES 7.7 % (2-11); NEUTROPHILS 72.9 % (40-80); PLATELET COUNT 275 10x3/uL (130-400); RBC 4.47 10x6/uL (4.00-5.40); RDW 13.6 % (11.5-14.5)
[2019-11-23 09:16] LABS: ANION GAP 13.1 mmol/L (8-16); CALCIUM 9.3 mg/dL (8.5-10.1); CARBON DIOXIDE 25.7 mmol/L (21.0-32.0); CHOL - HDL RATIO 3.1 ratio (2.3-4.1); CREATININE - SERUM 0.8 mg/dL (0.6-1.3); LDL-HDL RATIO 1.8 ratio (1.5-3.5); POTASSIUM - SERUM 3.8 mmol/L (3.5-5.1)
[2019-11-23] MEDS ORDERED: BAYER CHEWABLE81 MG PO (09:49)
--- NOTE | 2019-11-23 09:50 | NUR ---
PT RECEIVED BACK TO ROOM 10 VIA STRETCHER FROM COMMANDER POLICE RESERVES FOR RECOVERY. PT SLEEPING, BUT VERBALLY AROUSABLE, DENIES PAIN OR DISCOMFORT. IV PATENT INFUSING VIA ORDERS TO L ARM. PT PLACED ON CARDIAC MONITORS AND O2 VIA NC AT 2L. HR NSR RATE 58, BP 111/52, RR 13, SAT 98. RESP EVEN AND UNLABORED. R GROIN DRESSING CDI NO S/S HEMATOMA OR BLEEDING. LEG PINK AND WARM, PEDAL PULSES PALPABLE. PT INSTRUCTED TO KEEP HEAD ON PILLOW AND LEG STRAIGHT. PT'S CALLED AND DR STAPLETON DISCUSSED PROCEDURE RESULTS AND PLAN OF CARE. CALL LIGHT IN REACH.
--- NOTE | 2019-11-23 10:15 | NUR ---
PT REMAINS SLEEPING COMFORTABLY. R GROIN DRESSING CDI NO BLEEDING NOTED, SMALL AREA OF SWELLING MARKED WILL WATCH DOESN'T RESEMBLE A HEMATOMA AT THIS TIME. HR 54, BP 98/44, RR 14. FLUIDS OPENED UP. PT DENIES PAIN OR DISCOMFORT AT THIS TIME. CALL LIGHT IN REACH
--- NOTE | 2019-11-23 11:05 | NUR ---
R GROIN DRESSING CDI NO BLEEDING NOTED, SITE HAS GOTTEN BIGGER AND HARD, MANUAL PRESSURE HELD X5 MIN AND FEMOSTOP APPLIED W 78 PRESSURE. WILL MONITOR CLOSELY, PT TOLERATED PROCEDURE WELL, NO VS CHANGES OR SYMPTOMS VOIDED. DR STAPLETON NOTIFIED. 2ND BAG IV FLUIDS HUNG, IV PATENT. VSS. CALL LIGHT IN REACH, SIP OF WATER GIVEN PER PT REQUEST SHE DENIES ANY NAUSEA. LEG PINK AND WARM, PEDAL PULSES PALPABLE
--- NOTE | 2019-11-23 11:35 | NUR ---
FEMOSTOP IN PLACE, NO BLEEDING OR ADD'L SWELLING NOTED. LEG PINK AND WARM. VSS. PT DENIES PAIN OR DISCOMFORT. CALL LIGHT IN REACH
--- NOTE | 2019-11-23 11:40 | NUR ---
1/2 PRESSURE REMOVED FROM FEMOSTOP. NO BLEEDING NOTED. VSS CALL LIGHT IN REACH
--- NOTE | 2019-11-23 12:15 | NUR ---
REMAINING PRESSURE REMOVED FROM FEMOSTOP, NO BLEEDING OR ADD'L SWELLING NOTED. PT C/O PAIN IN UPPER THIGH AREA NO SWELLING TO THAT AREA NOTED, TECH FROM MEASUREMENT SPECIALIST LOOKED AT AREA AND AGREES NO HEMTOMA NOTED. VSS. FEMOSTOP REMOVED, WILL WATCH CLOSELY. CALL LIGHT IN REACH
--- NOTE | 2019-11-23 12:55 | NUR ---
R GROIN SOFT, NO S/S HEMATOMA OR BLEEDING. DRESSING CDI, BRUISING NOTED FROM HOLDING PRESSURE. PT DENIES PAIN IN THIGH, STATES IT IS BETTER NOW. HOB ELEVATED SLIGHTLY, SANDWICH AND DRINK SERVED. VSS. CALL LIGHT IN REACH
--- NOTE | 2019-11-23 13:25 | NUR ---
PT TOLERATED LUNCH W/O NAUSEA. R GROIN SOFT, NO S/S HEMATOMA. PT DENIES PAIN OR NEEDS AT THIS TIME. HR 68, BP 119/59, RR 15, SAT 94 ON ROOM AIR. CALL LIGHT IN REACH, PT NOTIFING OF D/C TIME TO BE OUT FRONT.
--- NOTE | 2019-11-23 13:47 | NUR ---
IV REMOVED W CATH INTACT, MONITORS REMOVED. R GROIN REMAINS SOFT, NO S/S HEMATOMA, DRESSING CDI. DISCHARGE INSTRUCTIONS REVIEWED W PT, SHE VERBALIZED UNDERSTANDING. PT UP TO DRESS FOR DISCHARGE.
--- NOTE | 2019-11-23 14:00 | NUR ---
PT TO BR VIA WC, VOIDING W/O DIFFICULITY. PT THEN DISCHARGED TO PRIVATE VEHICLE TO DAUGHTER WAITING. PT HAD ALL BELONGINGS AND DISCHARGE PAPERWORK IN HAND.
== END 2019-11-23 14:00 | disposition home or self-care (01) ==
LOC: D.CATH 07:58
PROVIDERS: ATTEND Internal Medicine Cardiovascular Disease
DX: I25.10 Atherosclerotic heart disease of native coronary artery without angina pectoris (principal); I21.9 Acute myocardial infarction, unspecified; I10 Essential (primary) hypertension